=== PATIENT | male | born 1995 | race African-American/Black ===

== ENCOUNTER 2019-09-28 13:46 | Emergency (ER) | payer OTHER ==
[~2019-09-28] VITALS: Ht 165.1 cm; Wt 102.1 kg
[2019-09-28 15:27] LABS: PLATELET COUNT 228 K/uL (142-355)
[2019-09-28 15:34] LABS: POTASSIUM 3.2 mmol/L (3.6-5.2)
[2019-09-28 17:15] VITALS: BP 170/101
== END 2019-09-28 17:15 | disposition home or self-care (01) ==
LOC: ED 13:46
PROVIDERS: Emergency Medicine
DX: J06.9 Acute upper respiratory infection, unspecified (principal); I10 Essential (primary) hypertension
CPT/HCPCS: 36415; 80053; 81000; 82962; 83036; 85027; 87502; 87651; 96360; 99284; J7120